=== PATIENT | female | born 1990 | race Two or more races ===

== ENCOUNTER 2017-11-26 15:08 | Outpatient (CLI) | payer OTHER ==
[~2017-11-26] VITALS: Ht 152.4 cm; Wt 74.8 kg
== END 2017-11-26 15:20 | disposition home or self-care (01) ==
LOC: OFIC 805 15:08
DX: J34.89 Other specified disorders of nose and nasal sinuses (principal); K29.00 Acute gastritis without bleeding; J04.0 Acute laryngitis; R49.0 Dysphonia; J34.2 Deviated nasal septum

== ENCOUNTER 2019-03-13 10:30 | Outpatient (CLI) | payer OTHER ==
[~2019-03-13] VITALS: Ht 152.4 cm; Wt 72.6 kg
== END 2019-03-13 15:18 | disposition home or self-care (01) ==
LOC: OFIC 805 10:30
DX: J04.0 Acute laryngitis (principal); R49.0 Dysphonia; K21.9 Gastro-esophageal reflux disease without esophagitis; J31.2 Chronic pharyngitis

== ENCOUNTER 2019-07-31 13:40 | Outpatient (CLI) | payer OTHER | END 2019-07-31 13:43 | disposition home or self-care (01) | LOC: LAB 13:40 | DX: J11.1 Influenza due to unidentified influenza virus with other respiratory manifestations (principal) ==

== ENCOUNTER → 2019-10-15 | Outpatient (CLI) | payer OTHER ==
[~2019-10-15] MED LIST: FLONASE16 GM NASAL; NEILMED SINUS1 EACH NASAL; SINGULAIR10 MG PO
== END | disposition home or self-care (01) ==
LOC: OFIC 805 13:47
DX: J31.2 Chronic pharyngitis (principal); K21.9 Gastro-esophageal reflux disease without esophagitis; T78.1XXA Other adverse food reactions, not elsewhere classified, initial encounter

== ENCOUNTER → 2019-12-04 08:00 | Outpatient (CLI) | payer OTHER | END | disposition home or self-care (01) | LOC: LAB 08:00 | PROVIDERS: ATTEND General Practice | DX: J11.1 Influenza due to unidentified influenza virus with other respiratory manifestations (principal); Z20.828 Contact with and (suspected) exposure to other viral communicable diseases; R09.81 Nasal congestion; R06.7 Sneezing; R05 Cough; Z12.11 Encounter for screening for malignant neoplasm of colon; G63 Polyneuropathy in diseases classified elsewhere; M54.5 Low back pain; R13.19 Other dysphagia ==

== ENCOUNTER 2019-12-04 08:33 | Outpatient (CLI) | payer OTHER | END 2019-12-04 08:35 | disposition home or self-care (01) | LOC: SONOGRAMA 08:33 | PROVIDERS: ATTEND General Practice | DX: M54.5 Low back pain (principal); M54.6 Pain in thoracic spine ==

== ENCOUNTER 2019-12-16 06:30 | Day surgery (SDC) | payer OTHER | END 2019-12-16 10:20 | disposition home or self-care (01) | LOC: AMB-ENDOS 06:30 | PROVIDERS: ATTEND Internal Medicine Gastroenterology | DX: D13.1 Benign neoplasm of stomach (principal); K29.60 Other gastritis without bleeding; K21.9 Gastro-esophageal reflux disease without esophagitis ==